=== PATIENT | female | born 1990 | race African-American/Black ===

== ENCOUNTER 2017-11-17 17:21 | Observation (INO) | payer MEDICAID ==
[~2017-11-17] VITALS: Ht 149.9 cm; Wt 50.8 kg
[~2017-11-17 17:21] MED LIST: IRON-1 PO; PNV1TABL76 PO
[2017-11-17] MEDS ORDERED: TERBUTALINE SULFATE 1MG/ML VIAL SUBCUT NR (17:30)
[2017-11-17] MEDS ORDERED: LACTATED RINGERS 1,000 ML IV SCH (17:30)
[2017-11-17 19:34] LABS: CLARITY URINE CLEAR (CLEAR); COLOR URINE YELLOW (YELLOW); KETONES URINE 3+ (NEGATIVE); LEUKOCYTE ESTERASE URINE NEGATIVE (NEGATIVE); NITRITE URINE NEGATIVE (NEGATIVE); OCCULT BLOOD URINE NEGATIVE (NEGATIVE); PH URINE 6.5 (4.5-8.0); PROTEIN URINE NEGATIVE (NEGATIVE); SPECIFIC GRAVITY URINE 1.011 (1.005-1.030); UROBILINOGEN URINE 0.2 E.U./dL (0.2-1.0)
== END 2017-11-17 20:25 | disposition home or self-care (01) ==
LOC: L&D 17:21
PROVIDERS: ADMIT Specialist; ATTEND Specialist
DX: O62.9 Abnormality of forces of labor, unspecified (principal); Z3A.29 29 weeks gestation of pregnancy
CPT/HCPCS: 76805; 76818; 81003; 82731; 96360; 96372; 99281; G0378; J3105; 59412; 96361

== ENCOUNTER 2017-12-17 11:57 | Observation (INO) | payer MEDICAID ==
[~2017-12-17] VITALS: Ht 149.9 cm; Wt 49.9 kg
[2017-12-17] MEDS ORDERED: LACTATED RINGERS 1,000 ML IV SCH (12:15)
[2017-12-17 12:58] LABS: CLARITY URINE CLOUDY (CLEAR); COLOR URINE YELLOW (YELLOW); KETONES URINE 1+ (NEGATIVE); LEUKOCYTE ESTERASE URINE NEGATIVE (NEGATIVE); NITRITE URINE NEGATIVE (NEGATIVE); OCCULT BLOOD URINE TRACE (NEGATIVE); PH URINE 7.5 (4.5-8.0); PROTEIN URINE 2+ (NEGATIVE); UROBILINOGEN URINE 0.2 E.U./dL (0.2-1.0)
[2017-12-17] MEDS ORDERED: TERBUTALINE SULFATE 1MG/ML VIAL SUBCUT PRN (13:45)
[2017-12-17] MEDS ORDERED: SODIUM CHLORIDE 0.9% 1,000 ML IV ONE (13:45)
[2017-12-17] MEDS ORDERED: ACETAMINOPHEN 500MG TABLET PO NR (13:45)
== END 2017-12-17 15:00 | disposition home or self-care (01) ==
LOC: L&D 11:57
PROVIDERS: ADMIT Specialist; ATTEND Specialist
DX: O62.9 Abnormality of forces of labor, unspecified (principal); Z3A.34 34 weeks gestation of pregnancy
CPT/HCPCS: 81003; 96360; 96361; 96372; 99281; G0378; J3105; J7030; J7120

== ENCOUNTER 2021-07-03 07:52 | Emergency (ER) | payer MEDICAID ==
[~2021-07-03] VITALS: Ht 157.5 cm; Wt 50.0 kg
[2021-07-03] MEDS ORDERED: KETOROLAC 30MG/ML VIAL IV STA (08:39)
[2021-07-03 09:00] VITALS: BP 104/60
[2021-07-03 09:17] LABS: BASOPHILS % 0.3 % (0.0-2.0); EOSINOPHILS % 0.4 % (0.0-5.0); HEMATOCRIT. 35.3 % (36.0-48.0); HEMOGLOBIN. 11.7 g/dL (12.0-16.0); LYMPHOCYTES % 18.5 % (20.0-50.0); MEAN CORPUSCULAR HEMOGLOBIN 28.9 pg (28.0-32.0); MEAN CORPUSCULAR VOLUME 87.4 fL (81.0-99.0); MONOCYTES % 4.2 % (2.0-8.0); NEUTROPHILS % 76.6 % (40.0-76.0); PLATELET 196 x1000/uL (130-400); RED BLOOD CELL COUNT 4.04 mill/uL (4.2-5.4); RED CELL DISTRIBUTION WIDTH 13.6 % (11.6-14.6)
[2021-07-03 09:26] LABS: CHLORIDE 111 mEq/L (98-107)
[2021-07-03] MEDS ORDERED: FAMO-135 MT (10:15)
[2021-07-03] MEDS ORDERED: IBUP-2029 MT (10:15)
== END 2021-07-03 10:40 | disposition home or self-care (01) ==
LOC: ER 07:52
DX: M94.0 Chondrocostal junction syndrome [Tietze] (principal)
CPT/HCPCS: 36415; 71045; 80053; 85025; 96374; 99284; J1885; J7040